=== PATIENT | female | born 1970 | race Caucasian/White ===

== ENCOUNTER → 2017-02-06 | Day surgery (SDC) | payer OTHER ==
[~2017-02-06] VITALS: Ht 157.5 cm; Wt 112.5 kg
[2017-02-06 09:28] LABS: HCT 38.3 % (37.0-47.0); HGB 12.7 g/dl (12.5-16.0); MCH 29.5 pg (25.0-31.0); MCHC 33.2 g/dL (32.0-36.0); MCV 88.9 fL (78.0-100.0); MPV 9.8 fL (6.0-9.5); RBC 4.31 M/uL (4.20-5.40); RDW 13.3 % (11.5-14.0); WBC 6.5 K/uL (4.0-10.5)
[2017-02-06 09:42] LABS: BILIRUBIN - TOTAL 0.2 mg/dL (0.1-1.0); CREATININE 0.5 mg/dL (0.5-1.0); GLOBULIN (CALCULATION) 2.8 g/dL (2.2-4.2); INR 0.9 (0.9-1.2); PROTHROMBIN TIME 11.8 SECONDS (11.7-14.0); TOTAL PROTEIN 6.8 g/dL (6.4-8.3)
[2017-02-06 09:43] LABS: PTT 28.9 SECONDS (23.2-31.4)
[2017-02-06 10:00] LABS: TSH (THYROID STIM HORMONE) 2.35 uIU/mL (0.270-4.200); VITAMIN D (25-OH) 20.79 ng/mL (20.0-)
[2017-02-06 10:02] LABS: FOLIC ACID (SERUM) > 20.0 ng/mL (4.4-31.0)
== END | disposition home or self-care (01) ==
LOC: FAS 08:19
PROVIDERS: Surgery
DX: K29.50 Unspecified chronic gastritis without bleeding (principal); E66.01 Morbid (severe) obesity due to excess calories; Z68.42 Body mass index [BMI] 45.0-49.9, adult; I10 Essential (primary) hypertension; E11.9 Type 2 diabetes mellitus without complications; M19.90 Unspecified osteoarthritis, unspecified site; Z90.711 Acquired absence of uterus with remaining cervical stump; Z90.49 Acquired absence of other specified parts of digestive tract; Z88.6 Allergy status to analgesic agent; Z87.442 Personal history of urinary calculi; Z82.5 Family history of asthma and other chronic lower respiratory diseases; Z82.49 Family history of ischemic heart disease and other diseases of the circulatory system; Z83.3 Family history of diabetes mellitus; Z83.49 Family history of other endocrine, nutritional and metabolic diseases; Z79.84 Long term (current) use of oral hypoglycemic drugs; Z79.899 Other long term (current) drug therapy; Z98.890 Other specified postprocedural states
CPT/HCPCS: 36415; 80053; 80061; 82306; 82607; 82728; 82746; 83036; 83540; 83550; 84425; 84443; 85610; 85730; 88305; 88312; J2704